=== PATIENT | male | born 1965 | race Caucasian/White ===

== ENCOUNTER 2020-01-11 14:33 | Emergency (ER) | payer MEDICAID ==
[~2020-01-11] VITALS: Ht 170.2 cm; Wt 90.7 kg
--- NOTE | 2020-01-11 15:06 | NUR ---
54 YO MALE C/O R SHOULDER PAIN S/P FALL X YESTERDAY. MED HX: DM, STROKE
[2020-01-11] MEDS ORDERED: IBUPROFEN 400 MG TAB PO SCH (15:55)
[2020-01-11] MEDS ORDERED: ACETAMINOPHEN 325 MG TAB PO SCH (15:55)
--- NOTE | 2020-01-11 16:51 | NUR ---
Patient discharged with v/s stable. Written and verbal after care instructions given and explained. Patient verbalized understanding. Ambulatory with steady gait. All questions addressed prior to discharge. Advised to follow up with PMD.
== END 2020-01-11 16:51 | disposition home or self-care (01) ==
LOC: MED 14:33
DX: S46.911A Strain of unspecified muscle, fascia and tendon at shoulder and upper arm level, right arm, initial encounter (principal); I10 Essential (primary) hypertension; E11.9 Type 2 diabetes mellitus without complications; Z86.73 Personal history of transient ischemic attack (TIA), and cerebral infarction without residual deficits; W19.XXXA Unspecified fall, initial encounter; Y93.89 Activity, other specified; Y92.89 Other specified places as the place of occurrence of the external cause; Y99.8 Other external cause status
CPT/HCPCS: 73030; 82948; 99283

== ENCOUNTER 2020-03-10 15:50 | Emergency (ER) | payer MEDICAID, SELFPAY ==
[~2020-03-10] VITALS: Ht 170.2 cm; Wt 90.7 kg
[2020-03-10 16:00] VITALS: BP 147/70
--- NOTE | 2020-03-10 16:05 | NUR ---
PT C/O COUGH FOR 4-5 DAYS. REPORTS EXPOSED HIS GRANDSON WHO WAS TESTED POSITIVE ON 02/29/2020. DENIES ANY PAIN, FEVER, SOB, CP, N/V/D. PMH: HTN, DM
--- NOTE | 2020-03-10 16:11 | NUR ---
NOVEL SWAB COLLECTED AND SENT TO THE LAB.
[2020-03-10 16:56] VITALS: BP 133/65
--- NOTE | 2020-03-10 16:56 | NUR ---
Patient discharged with v/s stable. Written and verbal after care instructions given and explained. Patient alert, oriented and verbalized understanding of instructions. Ambulatory with steady gait. All questions addressed prior to discharge. ID band removed. Patient advised to follow up with PMD. Rx of IBUPROFEN, TYLENOL, AND PROMETHAZINE given. Patient educated on indication of medication including possible reaction and side effects. Opportunity to ask questions provided and answered.
== END 2020-03-10 16:56 | disposition home or self-care (01) ==
LOC: MED 15:50
DX: U07.1 COVID-19 (principal); B34.9 Viral infection, unspecified; E11.9 Type 2 diabetes mellitus without complications; I63.9 Cerebral infarction, unspecified
CPT/HCPCS: 71045; 99284; U0003

== ENCOUNTER 2020-03-14 14:51 | Emergency (ER) | payer MEDICAID, SELFPAY ==
[~2020-03-14] VITALS: Ht 170.2 cm; Wt 90.7 kg
[2020-03-14 15:04] VITALS: BP 126/74
--- NOTE | 2020-03-14 15:10 | NUR ---
WAIT at tent [facility].
--- NOTE | 2020-03-14 15:11 | NUR ---
BIB SELF C/O COUGH X 3 DAYS. PT HAD COVID TESTED +. HIS AT BED 2 ER [facility] FOR COVID+.MED HX: DM, HTN, STROKE 10 YEARS AGO. DENIES N/V/D; SKIN IS PINK/WARM/DRY; AAOX4 WITH EVEN AND STEADY GAIT; LUNGS CLEAR BL; HR EVEN AND REGULAR; PT DENIES ANY FEVER, CP OR SOB AT THIS TIME; PATIENT STATES PAIN OF 0/10 AT THIS TIME.
--- NOTE | 2020-03-14 15:12 | NUR ---
Patient being evaluated by LOWELL SPENCER at [facility].
[2020-03-14 16:10] VITALS: BP 126/74
--- NOTE | 2020-03-14 16:11 | NUR ---
Patient discharged with v/s stable. Written and verbal after care instructions given and explained. Patient alert, oriented and verbalized understanding of instructions. Ambulatory with steady gait. All questions addressed prior to discharge. ID band removed. Patient advised to follow up with PMD. Rx of TYLENOL & PROMETHAZINE given. Patient educated on indication of medication including possible reaction and side effects. Opportunity to ask questions provided and answered.
== END 2020-03-14 16:11 | disposition home or self-care (01) ==
LOC: MED 14:51
DX: R05 Cough (principal); Z20.828 Contact with and (suspected) exposure to other viral communicable diseases; F17.290 Nicotine dependence, other tobacco product, uncomplicated; E11.9 Type 2 diabetes mellitus without complications; I10 Essential (primary) hypertension; Z98.890 Other specified postprocedural states
CPT/HCPCS: 71045; 99283

== ENCOUNTER 2020-06-14 11:07 | Emergency (ER) | payer MEDICAID, SELFPAY ==
[~2020-06-14] VITALS: Ht 170.2 cm; Wt 92.6 kg
[2020-06-14 11:42] VITALS: BP 164/80
--- NOTE | 2020-06-14 12:21 | NUR ---
RECEIVED THIS 55 YEAR OLD MALE AMBULATORY FORM THE TRIAGE, AWAKE,ALERT, BREATHING SPONTANEOUSLY AT ROOM AIR, NOT IN DISTRESS. WITH CHIEFCOMPLAINTS OF HIP PAIN FOR 2 DAYS, HX OF CVA, HTN, DM ON MEDICATION. INITIAL VITAL SIGNS TAKEN AND RECORDED, STABLE NOTED
[2020-06-14] MEDS ORDERED: KETOROLAC 30 MG/ML VIAL IM ONE (12:45)
[2020-06-14 13:55] VITALS: BP 148/91
--- NOTE | 2020-06-14 13:55 | NUR ---
DISCHARGED IN STABLE CONDITION AMBULATORY, DISCHARGE INSTRUCTION GIVEN AND VERBALIZED UNDERSTANDING
== END 2020-06-14 13:55 | disposition home or self-care (01) ==
LOC: MED 11:07
DX: M54.32 Sciatica, left side (principal); E11.9 Type 2 diabetes mellitus without complications; I10 Essential (primary) hypertension; Z86.73 Personal history of transient ischemic attack (TIA), and cerebral infarction without residual deficits
CPT/HCPCS: 73502; 96372; 99283; J1885

== ENCOUNTER 2020-07-26 15:50 | Emergency (ER) | payer MEDICAID ==
[~2020-07-26] VITALS: Ht 170.2 cm; Wt 90.7 kg
[2020-07-26 16:00] VITALS: BP 196/77
--- NOTE | 2020-07-26 16:15 | NUR ---
PATIENT AMBULATED TO BED 1.
--- NOTE | 2020-07-26 16:20 | NUR ---
55 Y/O MALE BIB SELF C/O RIGHT EYE PAIN RESULT FROM INJURY X TODAY. PT STATES HE WAS WORKING AROUND HOME, FELT WIRE GO INSIDE EYE. PT STATES CONTINUOUS SHARP PAIN 8/10, FEELS SWOLLEN AND LIKE "THERE IS SOMETHING INSIDE". RIGHT EYE SCLERA RED, NO DRAINAGE NOTED, PERRLA. PT DENIES VISION DISTURBANCE, NAUSEA/VOMITING, DIZZINESS, INJURY TO HEAD. AO4, BREATHING EVEN AND UNLABORED, SKIN WARM AND DRY. BED IN LOWEST POSITION, LOCKED, X1 SIDERAIL UP. PMHX - HTN, DM, CVA 2009 NKA
[2020-07-26] MEDS ORDERED: TETRACAINE HCL/PF 0.5% OPTH 4 ML BTL OP ONE (16:25)
[2020-07-26] MEDS ORDERED: FLUORESCEIN OPTH STRIP 1 MG OP ONE (16:25)
[2020-07-26] MEDS ORDERED: ERYT5OIN58 RIGHT EYE (16:33)
[2020-07-26] MEDS ORDERED: ACET-9882 PO (16:33)
[2020-07-26 16:49] VITALS: BP 165/77
--- NOTE | 2020-07-26 16:50 | NUR ---
Patient discharged with v/s stable. Written and verbal after care instructions ABOUT CORNEAL ABRASION AND SUBCONJUCTIVAL HEMMORHAGE given and explained. Patient alert, oriented and verbalized understanding of instructions. Ambulatory with steady gait. All questions addressed prior to discharge. ID band removed. Patient advised to follow up with PMD. Rx of ACETAMINOPHEN AND ERYTHROMYCIN BASE given. Patient educated on indication of medication including possible reaction and side effects. Opportunity to ask questions provided and answered.
== END 2020-07-26 16:50 | disposition home or self-care (01) ==
LOC: MED 15:50
DX: S05.02XA Injury of conjunctiva and corneal abrasion without foreign body, left eye, initial encounter (principal); H11.31 Conjunctival hemorrhage, right eye; E11.9 Type 2 diabetes mellitus without complications; I10 Essential (primary) hypertension; Z86.73 Personal history of transient ischemic attack (TIA), and cerebral infarction without residual deficits; Z79.899 Other long term (current) drug therapy; X58.XXXA Exposure to other specified factors, initial encounter; Y93.89 Activity, other specified; Y92.89 Other specified places as the place of occurrence of the external cause; Y99.8 Other external cause status
CPT/HCPCS: 99283

== ENCOUNTER 2022-12-18 08:58 | Emergency (ER) | payer MEDICAID ==
[~2022-12-18] VITALS: Ht 170.2 cm; Wt 86.6 kg
[~2022-12-18 08:58] MED LIST: ACET-9882 PO; ERYT5OIN58 RIGHT EYE
[2022-12-18 09:32] VITALS: BP 187/97; PULSE 70; RESP 17; TEMP 97.8; O2SAT 96
== END 2022-12-18 11:34 | disposition home or self-care (01) ==
LOC: MED 08:58
DX: M25.551 Pain in right hip (principal); I11.9 Hypertensive heart disease without heart failure; E11.9 Type 2 diabetes mellitus without complications; Z86.73 Personal history of transient ischemic attack (TIA), and cerebral infarction without residual deficits; Z79.4 Long term (current) use of insulin; Z79.899 Other long term (current) drug therapy
CPT/HCPCS: 73502; 99283

== ENCOUNTER 2024-01-03 11:49 | Emergency (ER) | payer MEDICAID, OTHER ==
[~2024-01-03] VITALS: Ht 170.2 cm; Wt 83.9 kg
[2024-01-03 11:51] VITALS: BP 129/76; PULSE 78; RESP 15; TEMP 98.3; O2SAT 98
[2024-01-03] MEDS ORDERED: SULF-59 PO (13:16)
[2024-01-03] MEDS: LIDOCAINE MPF 1% 10 MG/ML VIAL INJ ONE (13:34)
[2024-01-03 13:37] VITALS: BP 129/76; PULSE 78; RESP 15; TEMP 98.3; O2SAT 98
== END 2024-01-03 13:47 | disposition home or self-care (01) ==
LOC: MED 11:49
DX: L02.11 Cutaneous abscess of neck (principal); E11.9 Type 2 diabetes mellitus without complications; I10 Essential (primary) hypertension; E78.5 Hyperlipidemia, unspecified; Z86.73 Personal history of transient ischemic attack (TIA), and cerebral infarction without residual deficits; Z79.899 Other long term (current) drug therapy
CPT/HCPCS: 10060; 99283; J2001